=== PATIENT | female | born 1975 | race Caucasian/White ===

== ENCOUNTER 2019-12-12 11:50 | Emergency (ER) | payer SELFPAY ==
[~2019-12-12] VITALS: Ht 175.3 cm; Wt 109.1 kg
[2019-12-12 11:55] VITALS: TEMP 98.3
[2019-12-12] MEDS ORDERED: FIORICET 325 MG1 TA1 PO (12:50)
[2019-12-12] MEDS ORDERED: ZOFRAN ODT4 MG PO (12:50)
[2019-12-12 13:45] VITALS: BP 126/80; PULSE 85
== END 2019-12-12 13:45 | disposition home or self-care (01) ==
LOC: COL.ER 11:50
DX: G43.909 Migraine, unspecified, not intractable, without status migrainosus (principal)
CPT/HCPCS: J1885; J2550